=== PATIENT | male | born 1990 | race Hispanic/Latino ===

== ENCOUNTER 2018-12-07 14:43 | Emergency (ER) | payer SELFPAY ==
--- NOTE | 2018-12-07 15:04 | ER ---
Nurse's Notes [facility] Name: Mark Sam Age: 28 yrs Sex: Male : 1990 Arrival Date: 12/07/2018 Time: 14:45 Bed 12 Private MD: Diagnosis: Pain in arm, unspecified Presentation: 12/07 14:46 Presenting complaint: Patient states: Pain to right wrist, elbow, and shoulder for the aj1 past 2 months. Patient has not seen a doctor about this complaint prior to today. Denies any injury to right arm. Transition of care: patient was not received from another setting of care. Onset of symptoms was 2018. Risk Assessment: Do you want to hurt yourself or someone else? Patient reports no desire to harm self or others. Initial Sepsis Screen: Does the patient meet any 2 criteria? No. Patient's initial sepsis screen is negative. Does the patient have a suspected source of infection? No. Patient's initial sepsis screen is negative. Care prior to arrival: None. 14:46 Method Of Arrival: Ambulatory [facility] 14:46 Acuity: AIMEE 4 aj1 Triage Assessment: 14:46 General: Appears in no apparent distress. comfortable, Behavior is calm, cooperative, aj1 appropriate for age. Pain: Complains of pain in right arm Pain currently is 9 out of 10 on a pain scale. Neuro: Level of Consciousness is awake, alert, obeys commands. Cardiovascular: Patient's skin is warm and dry. Respiratory: Airway is patent Respiratory effort is even, unlabored, Respiratory pattern is regular, symmetrical. Historical: - Allergies: 14:48 No Known Allergies; aj - Home Meds: 14:48 None [Active]; aj - PMHx: 14:48 None; [facility] - PSHx: 14:48 Knee surgery; aj - Immunization history:: Flu vaccine is not up to date. - Social history:: Smoking status: Patient uses tobacco products, denies chronic smoking, but will smoke occasionally. - Ebola Screening: : Patient denies travel to an Ebola-affected area in the 21 days before illness onset. Screenin:25 Abuse screen: Denies threats or abuse. Denies injuries from another. Nutritional wh screening: No deficits noted. Tuberculosis screening: No symptoms or risk factors identified. Fall Risk None identified. Assessment: 15:05 General: Appears in no apparent distress. Behavior is calm, cooperative, appropriate wh for age. Pain: Complains of pain in right arm Pain does not radiate. Pain currently is 3 out of 10 on a pain scale. Quality of pain is described as aching, Pain began 2 months ago. Neuro: Level of Consciousness is awake, alert, obeys commands, Oriented to person, place, time, situation, Appropriate for age Glazier Supervisor are equal bilaterally. Cardiovascular: Capillary refill < 3 seconds. Respiratory: Airway is patent Respiratory effort is even, unlabored, Respiratory pattern is regular, symmetrical. GI: Abdomen is flat, non-distended. : No signs and/or symptoms were reported regarding the genitourinary system. EENT: No signs and/or symptoms were reported regarding the EENT system. Derm: Skin is intact, is healthy with good turgor, Skin is pink, warm \T\ dry. normal. Musculoskeletal: Circulation, motion, and sensation intact. Vital Signs: 14:46 BP 117 / 65; Pulse 96; Resp 18; Temp 97.9; Pulse Ox 98% on R/A; Weight 58.97 kg (R); aj1 Height 5 ft. 4 in. (162.56 cm) (R); Pain 9/10; 14:46 Body Mass Index 22.31 (58.97 kg, 162.56 cm) aj1 ED Course: 14:45 Patient arrived in ED. aj1 14:46 Triage completed. aj1 14:46 Arm band placed on Patient placed in an exam room. aj1 14:48 Montrell Cramer PA is PHCP. jr8 14:48 Khoa Eagle MD is Attending Physician. jr8 14:53 Mayco Mariee is Primary Nurse. 15:04 Artie Fong MD is Referral Physician. 8 15:05 Patient has correct armband on for positive identification. Bed in low position. Call light in reach. Side rails up X 1. Pulse ox on. NIBP on. 15:26 No provider procedures requiring assistance completed. Patient did not have IV access during this emergency room visit. Administered Medications: No medications were administered Outcome: 15:04 Discharge ordered by . [facility] 15:26 Discharged to home ambulatory, with family. 15:26 Condition: good 15:26 Discharge instructions given to patient, family, Instructed on discharge instructions, follow up and referral plans. POC Musculoskeletal pain Demonstrated understanding of instructions, follow-up care, POC and heat theraphy 15:27 Patient left the ED. Signatures: Yoko Berg RN RN aj1 Montrell Cramer PA PA jr8 Mayco Mariee
--- NOTE | 2018-12-07 15:05 | EDPHYS ---
Physician Documentation [facility] Name: Mark Sam Age: 28 yrs Sex: Male : 1990 Arrival Date: 12/07/2018 Time: 14:45 Bed 12 Private MD: ED Physician Khoa Eagle HPI: 12/07 14:57 This 28 yrs old Male presents to ER via Ambulatory with complaints of Hand jr8 Pain. 14:57 Associated signs and symptoms: Pertinent negatives: cyanosis distally, decreased jr8 sensation distally, fever, nausea. Severity of symptoms: At their worst the symptoms were mild. Pt reports he has had pain in juliana elbows, wrists for a "long time" but worse for the last two months. Pt denies rash, fever, illness, trauma. . Historical: - Allergies: 14:48 No Known Allergies; aj1 - Home Meds: 14:48 None [Active]; aj1 - PMHx: 14:48 None; aj1 - PSHx: 14:48 Knee surgery; aj1 - Immunization history:: Flu vaccine is not up to date. - Social history:: Smoking status: Patient uses tobacco products, denies chronic smoking, but will smoke occasionally. - Ebola Screening: : Patient denies travel to an Ebola-affected area in the 21 days before illness onset. ROS: 14:58 Constitutional: Negative for fever, chills, and weight loss, Eyes: Negative for injury, jr8 pain, redness, and discharge, ENT: Negative for injury, pain, and discharge, Neck: Negative for injury, pain, and swelling, Cardiovascular: Negative for chest pain, palpitations, and edema, Respiratory: Negative for shortness of breath, cough, wheezing, and pleuritic chest pain, Abdomen/GI: Negative for abdominal pain, nausea, vomiting, diarrhea, and constipation, Back: Negative for injury and pain, MS/Extremity: Negative for injury and deformity, Neuro: Negative for headache, weakness, numbness, tingling, and seizure. Exam: 14:58 Constitutional: This is a well developed, well nourished patient who is awake, alert, jr8 and in no acute distress. Head/Face: Normocephalic, atraumatic. Eyes: Pupils equal round and reactive to light, extra-ocular motions intact. Lids and lashes normal. Conjunctiva and sclera are non-icteric and not injected. Cornea within normal limits. Periorbital areas with no swelling, redness, or edema. ENT: Nares patent. No nasal discharge, no septal abnormalities noted. Tympanic membranes are normal and external auditory canals are clear. Oropharynx with no redness, swelling, or masses, exudates, or evidence of obstruction, uvula midline. Mucous membranes moist. Neck: Trachea midline, no thyromegaly or masses palpated, and no cervical lymphadenopathy. Supple, full range of motion without nuchal rigidity, or vertebral point tenderness. No Meningismus. Chest/axilla: Normal chest wall appearance and motion. Nontender with no deformity. No lesions are appreciated. Cardiovascular: Regular rate and rhythm with a normal S1 and S2. No gallops, murmurs, or rubs. Normal PMI, no JVD. No pulse deficits. Respiratory: Lungs have equal breath sounds bilaterally, clear to auscultation and percussion. No rales, rhonchi or wheezes noted. No increased work of breathing, no retractions or nasal flaring. Abdomen/GI: Soft, non-tender, with normal bowel sounds. No distension or tympany. No guarding or rebound. No evidence of tenderness throughout. Back: No spinal tenderness. No costovertebral tenderness. Full range of motion. Skin: Warm, dry with normal turgor. Normal color with no rashes, no lesions, and no evidence of cellulitis. MS/ Extremity: Pulses equal, no cyanosis. Neurovascular intact. Full, normal range of motion. Vital Signs: 14:46 BP 117 / 65; Pulse 96; Resp 18; Temp 97.9; Pulse Ox 98% on R/A; Weight 58.97 kg (R); aj1 Height 5 ft. 4 in. (162.56 cm) (R); Pain 9/10; 14:46 Body Mass Index 22.31 (58.97 kg, 162.56 cm) aj1 MDM: 14:58 Data reviewed: vital signs, nurses notes, and as a result, I will discharge patient. jr8 Data interpreted: Pulse oximetry: on room air is 98 %. Interpretation: normal. Counseling: I had a detailed discussion with the patient and/or guardian regarding: the historical points, exam findings, and any diagnostic results supporting the discharge/admit diagnosis. 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 . 15:00 Patient medically screened. jr8 Administered Medications: No medications were administered Disposition: 15:48 Co-signature as Attending Physician, Khoa Eagle MD. rn Disposition: 12/07/18 15:04 Discharged to Home. Impression: Pain in arm, unspecified. - Condition is Stable. - Discharge Instructions: Musculoskeletal Pain, Heat Therapy. - Work release form, Medication Reconciliation Form, Thank You Letter form. - Follow up: Artie Fong; When: As needed. - Problem is chronic. - Symptoms are unchanged. - Notes: Take tylenol and ibuprofen as needed at home for you pain, you can take up to 800mg of ibuprofen but do not do so daily, if you continue to have symptoms follow up with the orthopedic physician in your paperwork Signatures: Yoko Berg RN RN aj1 Khoa Eagle MD MD rn Roszak, Josh, PA PA jr8 Mayco Mariee Corrections: (The following items were deleted from the chart) 15:27 15:04 12/07/2018 15:04 Discharged to Home. Impression: Pain in arm, unspecified. wh Condition is Stable. Discharge Instructions: Musculoskeletal Pain, Heat Therapy. Forms are Work release form, Medication Reconciliation Form, Thank You Letter, Antibiotic Education, Prescription Opioid Use. Follow up: Artie Fong; When: As needed. Problem is chronic. Symptoms are unchanged. jr8
[2018-12-07 16:26] VITALS: BP 117/65; TEMP 97.9; O2SAT 98
== END 2018-12-07 15:27 | disposition home or self-care (01) ==
LOC: ER 14:43
DX: M79.601 Pain in right arm (principal); Z72.0 Tobacco use
CPT/HCPCS: 99283

== ENCOUNTER 2024-04-28 22:02 | Emergency (ER) | payer SELFPAY, OTHER ==
[2024-04-29] MEDS ORDERED: methocarbamoL 750 MG TAB ONE (00:02)
[2024-04-29] MEDS ORDERED: IBUPROFEN 400 MG TAB ONE (00:02)
[2024-04-29] MEDS ORDERED: PROMETHAZINE 25 MG TABLET ONE (00:02)
[2024-04-29] MEDS ORDERED: TRAMADOL HCL 50 MG TAB ONE (00:03)
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
[2024-04-29 23:11] VITALS: TEMP 97.2
[2024-04-29 23:12] VITALS: BP 134/68; O2SAT 98
== END 2024-04-29 01:47 | disposition home or self-care (01) ==
LOC: ER 22:02
DX: S83.92XA Sprain of unspecified site of left knee, initial encounter (principal); V59.49XA Driver of pick-up truck or van injured in collision with other motor vehicles in traffic accident, initial encounter
CPT/HCPCS: 99284; Q0169